=== PATIENT | male | born 1985 | race Caucasian/White ===

== ENCOUNTER 2021-01-19 15:46 | Emergency (ER) | payer OTHER ==
--- OUTSIDE RECORDS SUMMARY | 2021-01-19 15:50 | XMS REPORT | Continuity of Care Document ---
:1985 Author Organization [facility] t Address [address] [place] [address] Care Team Providers Name Role Phone Quezada DOJohn Primary Care Physician Jules VALLEJO Attending Clinician Ever Callahan DPM Attending Clinician Danny BISHOP Attending Clinician SINDY Admitting Clinician Unavailable Payers Payer Name Policy Type Policy Effective Date Expiration Date Sour ce Number [facility] [id number] 2018 Metho dist [facility] [id number]PresentMilitar y Problems Condition Condition Condition Status Onset Resolution Last Treating Co mments Source Name Details Category Date Date Treatment Clinician Date 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 abdominal 7-13 st pain, pain, 00:00: Hospita vomiting, vomiting, 00 l and and diarrhea diarrhea Essential Essential Disease Active 2015-05 [facility] hypertensi hypertensi 0-12 st on on 00:00: Hospita 00 l Mild Mild Disease Active 2015-05 [facility] intermitte intermitte 0-12 st nt asthma nt asthma 00:00: Hosp lona without without 00 l complicati complicati on on Onychomyco Onychomyco Disease Active M ethodi sis sis 12-05 st 00:00: Hospita 00 l Scrotal Scrotal Disease Active Methodi skin skin 12-05 lesion lesion 00:00: Hospita 00 l YEISON YEISON Disease Active Methodi (obstructi (obstructi 12-05 ve sleep ve sleep 00:00: Hospit a apnea) apnea) 00 l Chronic Chronic Disease Active [facility] back pain back pain 12-05 st 00:00: Hospita 00 l Chronic Chronic Disease Active [facility] neck and neck and 12-05 back pain back pain 00:00: Hosp lona 00 l IBS IBS Disease Active Methodi (irritable (irritable st bowel bowel Hospita syndrome) syndrome) l Arthritis Arthritis Disease Active Met hodi [facility] Hospita l Torn Torn Disease Active Methodi rotator rotator st cuff cuff Hospita l PTSD PTSD Disease Active Method[facility] (post-trau (post-trau st matic matic Hospita stress stress l disorder) disorder) Allergies, Adverse Reactions, Alerts Allergy Allergy Status Severity Reaction(s) Onset Inactive Treating Comm ents Source Name Type Date Date Clinician Sincere Siegel Active GI Nausea Method i phone ty to Intolerance 12-[address] adverse 00:00: vomitting Hospit a reaction 00 l s to drug No Known DA Active [facility] Allergie 3-25 [facility] Family History Family Member Diagnosis Comments Start Date Stop Date Source Natural mother Hyper[facility] Natural mother Cancer [facility] Natural father No Known Problems Met [facility] Maternal grandmother Hyperlipidemia [facility] Social History Social Habit Start Date Stop Date Quantity Comments Source History of Cigarette Smoker [facility] tobacco use Hospital Tobacco use and 2019-08-03 2019-08-03 Never used [facility] exposure 00:00:00 00:00:00 Hospital Alcohol intake 2019-08-03 2019-08-03 [facility] 00:00:00 00:00:00 Hospital Tobacco Comment 2019-07-15 2019-07-15 quit 3 years agp Met [facility] 00:00:00 00:00:00 Hospital Alcohol Comment 2019-07-15 2019-07-15 rarely [facility] 00:00:00 00:00:00 Hospital Sex Ass[birth year] At [birth year] [facility] 00:00:00 00:00:00 Hospital Smoking Status Start Date Stop Date Source Former smoker 2019-08-03 00:00:00 2019-08-03 00:00:00 [facility] Medications Ordered Filled Start Stop Current Ordering Indication Dosage Frequency Signature Comments Components Source Medication Medication Date Date Medication? Clinician (SIG) Name Name albuterol Yes 2.5mg Q6H Take 2.5 Met hodi (ACCUNEB) 3-[address] 2.5 mg /3 00:52: nebulizati Ho spita mL (0.083 45 on every 6 l %) (six) nebulizer hours as solution needed for wheezing. oxyCODone Yes 10mg Take 10 mg Me thodi (OxyCONTIN) 3-[address] 10 MG 12 hr 00:52: as needed. Hospita tablet 45 l HYDROcodone Yes 1{tbl} Take 1 Me thodi -acetaminop 2-[address] hen (NORCO) 00:00: mouth. Hosp lona 10-325 mg 00 l per tablet Lisinopril Lisinopril Yes Leeroy [address] [facility] Albuterol Albuterol Yes Leeroy not [facility] defined [facility] Breo Breo Yes Leeroy [address] [facility] Procedures Procedure Date / Time Performed Performing Clinician [facility] e MRI ANKLE WO CONTRAST 2020-04-28 00:02:07 Allie Callahan [facility] RIGHT X RAYS NO CHARGE MRI 2020-04-27 23:05:03 [facility] Planned Activity Planned Date Details Comments Source Future Scheduled Test COVID-19 VACCINE (1) [facility] [code = COVID-19 VACCINE (1)] Future Scheduled Test Hepatitis C screening [facility] (procedure) [code = 329858184] Future Scheduled Test INFLUENZA VACCINE [facility] [code = INFLUENZA VACCINE] Encounters Start End Encounter Admission Attending Care Care Encounter Source Date/Time Date/Time Type Type Clinicians Facility Department ID 2020-07-21 2020-07-21 [id number] 2020-06-29 2020-06-29 Out[facility] [id number] [facility] 2020-06-24 2020-06-24 Out[facility] [id number] [facility] 2020-06-17 2020-06-17 [facility] [id number] [facility] 2020-04-27 2020-04-[address]2.840.1 [id number] Methodi 16:49:33 23:59:00 Encounter Vasquez [id number] 3.430.2.7 Hospit a .3.257564 l .8 2020-04-27 2020-04-[address]1 [id number] Methodi 16:27:55 16:48:00 Encounter Allie Curtis [id number] 3.430.2.7 Hospit a .3.335569 l .8 2020-04-27 2020-04-27 Outpatient [facility] [id number] [place] 00:00:00 00:00:00 ALLIE [address] 2020-04-27 2020-04-27 Outpatient [facility] [id number] [address] [place] [address] 00:00:00 00:00:[address] VASQUEZ [address] 2020-04-27 2020-04-27 Travel 1.2.840.1 [id number] [id number] Methodi 00:00:00 00:00:[address] 3.430.2.7 0.2.7.3.698 Ho spita .3.026238 084.8 l .8 2020-04-27 2020-04-27 Transcribe Sindy, 1.2.840.1 [id number] Methodi 00:00:00 00:00:00 Bradley Curtis [address]258.1.[address] [facility] [address] 3.430.2.7 Hospit a .3.366942 l .8 2020-03-18 2020-03-18 Outpatient [facility] [id number] [facility] 2020-03-01 2020-03-01 Outpatient [facility] [id number] [facility] 2020-03-01 2020-03-01 Outpatient [facility] [id number] [facility] 2019-12-11 2019-12-11 [facility] [id number] 15:12:00 15:12:00 t Bradford agreement24 avtal24 s - Drive [facility] Medicine l Medicine Outpati ent Clinics 2019-11-30 2019-11-30 [facility] [id number] 16:25:00 16:25:00 t GO Outdoors s - [employer] [facility] Medicine l Medicine Outpati ent Clinics 2019-11-30 2019-11-30 [facility] [id number] 16:15:00 16:15:00 t GO Outdoors s - Drive [facility] Medicine l Medicine Outpati ent Clinics 2019-11-24 2019-11-24 [facility] [id number] 15:59:00 15:59:00 t GO Outdoors s - Drive [facility] Medicine l Medicine Outpati ent Clinics 2019-11-19 2019-11-19 [facility] [id number] 14:23:00 14:23:00 t GO Outdoors s - Drive [facility] l Medicine Outpati ent Clinics 2019-11-18 2019-11-18 [facility] [id number] 11:20:00 11:20:00 t [facility] [employer] [facility] Medicine l Medicine Outpati ent Clinics 2019-11-17 2019-11-17 [facility] [id number] 10:36:00 10:36:00 [facility] Medicine l Medicine Outpati ent Clinics 2019-07-31 2019-07-31 Outpatient [facility] [id number] [place] 00:00:00 00:00:00 ALLIE [address] 2019-07-28 2019-07-28 Emergency Delgado, TRAUMA 1.2.840.114 [id number] 19:05:30 20:14:00 [facility] 350.1.13.10 4.2.7.2.686 [id number] 2019-07-21 2019-07-21 Outpatient [facility] [id number] [id number] [place] 00:00:00 00:00:00 ALLIE [address] Results Test Description Test Time Test Comments Results Result Sourc e Comments XR Rays No EXAMINATION: X RAYS Meth odist Charge MRI 3 NO CHARGE MRI [facility] 13:30:23 CLINICAL HISTORY: M79.5 Residual foreign body in soft tissue COMPARISON: None. FINDINGS: Three-view examination of the orbits. No metallic foreign body identified IMPRESSION: No metallic foreign body over either orbit [id number] Interface, Radiology Results - 04/28/2020 7:33 AM CST EXAMINATION : X RAYS NO CHARGE MRICLINICAL HISTORY: M79.5 Residual foreign body in soft tissueCOMPARISON: None.FINDINGS:Three- view examination of the orbits.No metallic foreign body identifiedIMPRESSION :No metallic foreign body over either [id number] MRI Ankle Wo EXAMINATION: MRI Metho dist Contrast Right 3 ANKLE WO CONTRAST Hos pital 00:13:34 RIGHT CLINICAL HISTORY: S90.01XA Contusion of right ankle initial encounter, M25.571 Pain in right ankle and joints of right foot, S90.01XA M25.571 COMPARISON: None available. TECHNIQUE: Multiplanar multisequence MRI of the right ankle was performed without contrast. FINDINGS: MARROW/JOINT SPACES/JOINT FLUID: *Normal marrow signal without evidence of fracture, stress reaction or pathologic marrow replacing process. *1.3 x 1.4 cm medial talar dome osteochondral defect. No in situ fragment or loose intra-articular body*Small volume tibiotalar joint effusion. TENDONS:*Achilles tendon: Intact.*Anterior: Focal fluid surrounds the extensor digitorum longus tendon consistent with either focal tenosynovitis vs small ganglion formation. The anterior ankle tendons are otherwise intact.*Medial: intact.*Peroneal:int act.*Additional Findings: None LIGAMENTS: *Syndesmotic: Anterior and posterior syndesmotic ligaments are intact.*Lateral: Anterior talofibular ligament, calcaneofibular ligament and posterior talofibular ligament are intact.*Medial: Deep deltoid ligament intact.*Spring Ligament complex:Intact*Addit ional Findings: None SINUS TARSI: Intact.PLANTAR FASCIA: Intact.TARSAL TUNNEL: Normal.SOFT TISSUES: No fluid collections, hematomas or edema. IMPRESSION: 1.1.4 cm medial talar dome osteochondral defect.2.Small volume ankle joint effusion without loose body.3.Other chronic findings as above. [id number] Interface, Radiology Results Incoming - 04/27/2020 6:16 PM CST EXAMINATION : MRI ANKLE WO CONTRAST RIGHTCLINICAL HISTORY: S90.01XA Contusion of right ankle initial encounter, M25.571 Pain in right ankle and joints of right foot, S90.01XA M25.571COMPARISON: None available.TECHNIQUE: Multiplanar multisequence MRI of the right ankle was performed without contrast.FINDINGS:MA RROW/JOINT SPACES/JOINT FLUID: *Normal marrow signal without evidence of fracture, stress reaction or pathologic marrow replacing process. *1.3 x 1.4 cm medial talar dome osteochondral defect. No in situ fragment or loose intra-articular body*Small volume tibiotalar joint effusion.TENDONS:*Ac hilles tendon: Intact.*Anterior: Focal fluid surrounds the extensor digitorum longus tendon consistent with either focal tenosynovitis vs small ganglion formation. The anterior ankle tendons are otherwise intact.*Medial: intact.*Peroneal:int act.*Additional Findings: NoneLIGAMENTS: *Syndesmotic: Anterior and posterior syndesmotic ligaments are intact.*Lateral: Anterior talofibular ligament, calcaneofibular ligament and posterior talofibular ligament are intact.*Medial: Deep deltoid ligament intact.*Spring Ligament complex:Intact*Addit ional Findings: NoneSINUS TARSI: Intact.PLANTAR FASCIA: Intact.TARSAL TUNNEL: Normal.SOFT TISSUES: No fluid collections, hematomas or edema.IMPRESSION:1.1 .4 cm medial talar dome osteochondral defect.2.Small volume ankle joint effusion without loose body.3.Other chronic findings as above.[id number] - XR FOOT 3 + V 2019-05-28 FAX: RT 0 Viktoriya Mina 18:39:00 [place]: St: REG -- Name: VITALIY COLBERT [facility] : 1985 Age/S: 33/M [address] [facility]: [id number] Loc: [place], [place] Phys: Viktoriya Mina FORK OPERATOR [id number] Acct: [id number] Dis Date: Status: REG ER PHONE #: [phone] Exam Date: 06/15/2019 1824 FAX #: [phone] Reason: pain to limb EXAMS: CPT CODE: [id number] XR FOOT 3 + V RT [id number] Location code: R 16 Right ankle 3 views and right foot 3 views: Indication: pain to limb Comparison: none. Findings: Small bony fragment lateral to the tip of the medial malleolus appears to originate from the lateral malleolus, consistent with a deltoid ligament avulsion fracture. The fragment is smoothly marginated and somewhat deossified, suggesting chronicity. Mild soft tissue swelling over lateral malleolus. Ankle joint is otherwise intact. Subtalar and foot joints unremarkable. Bones of the foot are intact. IMPRESSION: Small avulsion fracture originating from the medial malleolus, consistent with a deltoid ligament avulsion fracture, probably chronic. Mild overlying soft tissue swelling, consistent with superimposed acute sprain. at 1839 Reported and signed by: Richard Nova M.D. CC: Viktoriya Mina NP Technologist: ALEKSEY Ribeirord Date/Time/By: 06/15/2019 (1838) : By: [email or web address] PAGE 1 Signed Report FAX: Viktoriya Mina [phone] [place]: St: REG -- Name: VITALIY COLBERT [facility] : 1985 Age/S: 33/M [facility] [place] Unit #: [id number] Loc: [place], [place] Phys: Viktoriya Mina FORK OPERATOR [id number] Acct: [id number] Dis Date: Status: REG ER PHONE #: [phone] Exam Date: 06/15/20191823 FAX #: [phone] Reason: pain to limb EXAMS: CPT CODE: [id number] XR FOOT 3 + V RT [id number] <Continued> Orig Print D/T: S: 06/15/2019 (1841) PAGE 2 Signed Report - XR ANKLE 3 + V 2019-05-28 FAX: RT 0 Viktoriya Mina 18:39:00 [place]: St: REG -- Name: DOUGLESLYVITALIY MARTIN [facility] : 1985 Age/S: 33/M [address] [place] Unit #: [id number] Loc: [place], [place] Phys: Viktoriya Mina FORK OPERATOR [id number] Acct: [id number] Dis Date: Status: REG ER PHONE #: [phone] Exam Date: 06/15/2019 1824 FAX #: [phone] Reason: pain to limb EXAMS: CPT CODE: [id number] XR ANKLE 3 + V RT [id number] Location code: R 16 Right ankle 3 views and right foot 3 views: Indication: pain to limb Comparison: none. Findings: Small bony fragment lateral to the tip of the medial malleolus appears to originate from the lateral malleolus, consistent with a deltoid ligament avulsion fracture. The fragment is smoothly marginated and somewhat deossified, suggesting chronicity. Mild soft tissue swelling over lateral malleolus. Ankle joint is otherwise intact. Subtalar and foot joints unremarkable. Bones of the foot are intact. IMPRESSION: Small avulsion fracture originating from the medial malleolus, consistent with a deltoid ligament avulsion fracture, probably chronic. Mild overlying soft tissue swelling, consistent with superimposed acute sprain. at 1839 Reported and signed by: Richard Nova M.D. CC: Viktoriya Mina NP Technologist: ALEKSEY DOHERTY Trnnvrd Date/Time/By: 06/15/2019 (1838) : By: [email or web address] PAGE 1 Signed Report FAX: Viktoriya Mina [phone] [place]: St: REG -- Name: VITALIY COLBERT [facility] : 1985 Age/S: 33/M [address] [employer] Unit #: [id number] Loc: [place], [place] Phys: Viktoriya Mina FORK OPERATOR [id number] Acct: [id number] Dis Date: Status: REG ER PHONE #: [phone] Exam Date: 06/15/2019 1824 FAX #: [phone] Reason: pain to limb EXAMS: CPT CODE: [id number] XR ANKLE 3 + V RT [id number] <Continued> Orig Print D/T: S: 06/15/2019 (6685) PAGE 2 Signed Report
--- NOTE | 2021-01-19 16:28 | RAD REPORT ---
EXAM DESCRIPTION: CT - Ct Stroke Brain Wo Cont - 01/19/2021 4:20 pm CLINICAL HISTORY: Headache;Numbness COMPARISON: No comparisons TECHNIQUE: All CT scans are performed using dose optimization technique as appropriate and may inclu de automated exposure control or mA/KV adjustment according to patient size. FINDINGS: No intracranial hemorrhage, hydrocephalus or extra-axial fluid collection.No areas of brai n edema or evidence of midline shift. The paranasal sinuses and mastoids are clear. The calvarium is intact. IMPRESSION: No acute intracranial abnormality.
--- NOTE | 2021-01-19 16:46 | EDPHYS ---
Physician Documentation [facility] Name: Mahad Blunt Age: 35 yrs Sex: Male : 1985 Arrival Date: 01/19/2021 Time: 15:48 Bed 6 Private MD: ED Physician Sean Lui HPI: 01/19 16:35 This 35 yrs old Male presents to ER via Ambulatory with complaints of High lydia Blood Pressure, Numbness in Hand. Historical: - Allergies: 16:10 No Known Allergies; sv - Home Meds: 16:10 Lisinopril Oral [Active]; sv - PMHx: 16:10 HTN; sv - Immunization history:: Client reports receiving the 2nd dose of the Covid vaccine, Client reports receiving the 1st dose of the Covid vaccine. - Social history:: Smoking status: Patient reports the use of cigarette tobacco products, denies chronic smoking, but will smoke occasionally. ROS: 16:36 Constitutional: Negative for fever, chills, and weight loss, Eyes: Negative for injury, lydia pain, redness, and discharge, ENT: Negative for injury, pain, and discharge, Neck: Negative for injury, pain, and swelling, Cardiovascular: Negative for chest pain, palpitations, and edema, Respiratory: Negative for shortness of breath, cough, wheezing, and pleuritic chest pain, Abdomen/GI: Negative for abdominal pain, nausea, vomiting, diarrhea, and constipation, Back: Negative for injury and pain, : Negative for injury, bleeding, discharge, and swelling, MS/Extremity: Negative for injury and deformity, Skin: Negative for injury, rash, and discoloration, Psych: Negative for depression, anxiety, suicide ideation, homicidal ideation, and hallucinations, Allergy/Immunology: Negative for hives, rash, and allergies, Endocrine: Negative for neck swelling, polydipsia, polyuria, polyphagia, and marked weight changes, Hematologic/Lymphatic: Negative for swollen nodes, abnormal bleeding, and unusual bruising. 16:36 Neuro: Positive for weakness, of the right arm. Exam: 16:36 Constitutional: This is a well developed, well nourished patient who is awake, alert, lydia and in no acute distress. Head/Face: Normocephalic, atraumatic. Eyes: Pupils equal round and reactive to light, extra-ocular motions intact. Lids and lashes normal. Conjunctiva and sclera are non-icteric and not injected. Cornea within normal limits. Periorbital areas with no swelling, redness, or edema. ENT: Nares patent. No nasal discharge, no septal abnormalities noted. Tympanic membranes are normal and external auditory canals are clear. Oropharynx with no redness, swelling, or masses, exudates, or evidence of obstruction, uvula midline. Mucous membranes moist. Neck: Trachea midline, no thyromegaly or masses palpated, and no cervical lymphadenopathy. Supple, full range of motion without nuchal rigidity, or vertebral point tenderness. No Meningismus. Chest/axilla: Normal chest wall appearance and motion. Nontender with no deformity. No lesions are appreciated. Cardiovascular: Regular rate and rhythm with a normal S1 and S2. No gallops, murmurs, or rubs. Normal PMI, no JVD. No pulse deficits. Respiratory: Lungs have equal breath sounds bilaterally, clear to auscultation and percussion. No rales, rhonchi or wheezes noted. No increased work of breathing, no retractions or nasal flaring. Abdomen/GI: Soft, non-tender, with normal bowel sounds. No distension or tympany. No guarding or rebound. No evidence of tenderness throughout. Back: No spinal tenderness. No costovertebral tenderness. Full range of motion. Male : Normal genitalia with no discharge or lesions. Skin: Warm, dry with normal turgor. Normal color with no rashes, no lesions, and no evidence of cellulitis. MS/ Extremity: Pulses equal, no cyanosis. Neurovascular intact. Full, normal range of motion. Psych: Awake, alert, with orientation to person, place and time. Behavior, mood, and affect are within normal limits. 16:36 Neuro: Orientation: is normal, appropriate for stated age, no acute changes, Mentation: is normal, appropriate for stated age, no acute changes, Memory: is normal, appropriate for stated age, no acute changes, Cranial nerves: grossly normal, is grossly normal based on the patient's age, no acute changes, Cerebellar function: is grossly normal, is grossly normal based on the patient's age, no acute changes, Motor: is normal, is grossly normal based on the patient's age, no acute changes, moves all fours, strength is 5/5 in all extremities, Sensation: numbness, that is mild, of the right arm, Gait: not tested. Deep tendon reflexes are 2+ (normal) in the bilateral brachioradialis, bicep, tricep and patellar and Achilles tendons, Babinski testing is normal, seizure activity, is not displayed by the patient. 16:46 ECG was reviewed by the Attending Physician. lydia Vital Signs: 16:11 BP 153 / 104; Pulse 90; Resp 20; Temp 97.3; Pulse Ox 99% ; Weight 127.01 kg; Height 6 sv ft. 0 in. (182.88 cm); 17:40 BP 149 / 97; Pulse 75; Resp 18; Pulse Ox 100% on R/A; tr6 18:25 BP 136 / 71; Pulse 76; Resp 18; Pulse Ox 100% on R/A; tr6 16:11 Body Mass Index 37.98 (127.01 kg, 182.88 cm) sv NIH Stroke Scale Scores: 16:39 NIHSS Score: 2 lydia 17:33 NIHSS Score: 0 tr6 Sue Coma Score: 16:39 Eye Response: spontaneous(4). Verbal Response: oriented(5). Motor Response: obeys lydia commands(6). Total: 15. MDM: 16:25 Patient medically screened. lydia 16:41 Differential diagnosis: hypertensive crisis, Malignant HTN, CVA. Data reviewed: vital lydia signs, nurses notes. Data interpreted: monitoring and evaluation advisor: rate is 90 beats/min, rhythm is regular, Pulse oximetry: on room air is 99 %. Test interpretation: by ED physician or midlevel provider: ECG, plain radiologic studies. Counseling: I had a detailed discussion with the patient and/or guardian regarding: the historical points, exam findings, and any diagnostic results supporting the discharge/admit diagnosis, lab results. 16:45 Physician consultation: Gt Ely MD wants tpa, transfer , no beds. ED course: lydia ely, tpa yes, no reason not too. 01/19 16:25 Order name: Basic Metabolic Panel 01/19 16:25 Order name: CBC with Diff; Complete Time: 17:21 01/19 16:25 Order name: Protime (+inr); Complete Time: 17:21 01/19 16:25 Order name: Ptt, Activated; Complete Time: 17:21 01/19 16:25 Order name: Basic Metabolic Panel; Complete Time: 17:21 EDMD 01/19 16:15 Order name: CT Stroke Brain w/o Contrast; Complete Time: 16:35 sv 01/19 16:25 Order name: Stroke CXR 1 View; Complete Time: 17:08 01/19 16:28 Order name: CT Head Angio; Complete Time: 17:08 [facility] 01/19 16:28 Order name: Neck Angio CT; Complete Time: 17:08 [facility] 01/19 16:44 Order name: Glucose, Ancillary Testing; Complete Time: 17:08 EDMD 01/19 17:04 Order name: Brain Wo Cont; Complete Time: 17:49 EDMD 01/19 18:16 Order name: SARS-COV-2 RT PCR EDMD 01/19 16:25 Order name: EKG; Complete Time: 16:25 sv 01/19 16:25 Order name: Accucheck; Complete Time: 16:34 sv 01/19 16:25 Order name: Cardiac monitoring; Complete Time: 16:42 01/19 16:25 Order name: EKG - Nurse/Tech; Complete Time: 16:42 01/19 16:25 Order name: IV Saline Lock; Complete Time: 16:34 sv 01/19 16:25 Order name: Labs collected and sent; Complete Time: 16:34 01/19 16:25 Order name: NPO; Complete Time: 16:34 01/19 16:25 Order name: O2 Per Protocol; Complete Time: 16:34 01/19 16:25 Order name: O2 Sat Monitoring; Complete Time: 16:34 01/19 16:25 Order name: Stroke Swallow Screen sv EC:46 Rate is 84 beats/min. Rhythm is regular. QRS Long Key is Normal. WI interval is normal. QRS lydia interval is normal. QT interval is normal. No Q waves. T waves are Normal. No ST changes noted. Clinical impression: NSR w/ Non-specific ST/T Changes and No evidence of ischemia. Interpreted by me. Reviewed by me. Administered Medications: 16:41 Drug: NS 0.9% 1000 ml Route: IV; Rate: 1 bolus; Site: right antecubital; tr6 18:49 Follow up: IV Status: Completed infusion; IV Intake: 1000ml bp 16:41 Drug: foLIC Acid 1 mg Route: IVPB; Site: right antecubital; tr6 18:50 Follow up: IV Status: Completed infusion; IV Intake: 100ml bp 17:40 Drug: ACTIvase (alteplase) {Co-Signature: bp (Vazquez Huizar RN).} Route: IV tr6 Thrombolytics; Rate: calculated rate; Infused Over: 60 mins; 18:48 Follow up: Response: No adverse reaction bp 18:23 Drug: Lipitor (atorvastatin) 20 mg Route: PO; tr6 18:48 Follow up: Response: No adverse reaction bp Disposition Summary: 01/19/21 16:45 Transfer Ordered Transfer Location: [facility] lydia Reason: Higher level of care lydia Condition: Stable lydia Problem: new lydia Symptoms: have improved lydia Accepting Physician: to stroke unit(01/19/21 19:01) tr6 Diagnosis - Cerebral infarction, unspecified - right arm numbness lydia Forms: - Medication Reconciliation Form lydia - SBAR form lydia NIH Stroke Scale - NIH Stroke Score Date: 01/19/2021 Time: 16:39 Total Score = 2 1a. Level of Consciousness (LOC) - 0(Alert) 1b. Level of Consciousness (LOC) (Month \T\ Age) - 0(Both) 1c. LOC Commands (Open \T\ Closes Eyes/Bioinformatician) - 0(Both) 2. Best Gaze (Lateral Gaze Paresis) - 0(Normal) 3. Visual Field Loss - 0(No visual loss) 4. Facial Palsy - 0(Normal) 5a. Left Arm: Motor (10-second hold) - 0(No drift) 5b. Right Arm: Motor (10-second hold) - 1(Drift) 6a. Left Leg: Motor (5-second hold - always test supine) - 0(No drift) 6b. Right Leg: Motor (5-second hold - always test supine) - 0(No drift) 7. Limb Ataxia (finger/nose \T\ heel/norris - test with eyes open) - 0(Absent) 8. Sensory Loss (pinprick arms/legs/face) - 1(Mild to moderate loss) 9. Best Language: Aphasia (description/naming/reading) - 0(No aphasia) 10. Dysarthria (speech clarity - read or repeat words) - 0(Normal) 11. Extinction and Inattention (visual/tactile/auditory/spatial/personal) - 0(No abnormality) Initials: lydia NIH Stroke Scale - NIH Stroke Score Date: 01/19/2021 Time: 17:33 Total Score = 0 1a. Level of Consciousness (LOC) - 0(Alert) 1b. Level of Consciousness (LOC) (Month \T\ Age) - 0(Both) 1c. LOC Commands (Open \T\ Closes Eyes/Bioinformatician) - 0(Both) 2. Best Gaze (Lateral Gaze Paresis) - 0(Normal) 3. Visual Field Loss - 0(No visual loss) 4. Facial Palsy - 0(Normal) 5a. Left Arm: Motor (10-second hold) - 0(No drift) 5b. Right Arm: Motor (10-second hold) - 0(No drift) 6a. Left Leg: Motor (5-second hold - always test supine) - 0(No drift) 6b. Right Leg: Motor (5-second hold - always test supine) - 0(No drift) 7. Limb Ataxia (finger/nose \T\ heel/norris - test with eyes open) - 0(Absent) 8. Sensory Loss (pinprick arms/legs/face) - 0(Normal) 9. Best Language: Aphasia (description/naming/reading) - 0(No aphasia) 10. Dysarthria (speech clarity - read or repeat words) - 0(Normal) 11. Extinction and Inattention (visual/tactile/auditory/spatial/personal) - 0(No abnormality) Initials: tr6 Signatures: Dispatcher [employer] EDGuera Oseguera RN RN sv Anderson, Corey, MD MD cha Ramnanan, Tiffany, RN RN tr6 Peltier, Brian RN bp Brian Peltier RN bp Corrections: (The following items were deleted from the chart) 17:03 16:43 CORONAVIRUS+MR.LAB.BRZ ordered. EDMS EDMS 17:04 16:28 MR STROKE PROTOCOL+MRI.RAD.BRZ ordered. EDMS EDMS 19:01 16:45 to stroke unit [facility] deangelo
--- NOTE | 2021-01-19 16:46 | ER ---
Nurse's Notes [facility] Name: Mahad Blunt Age: 35 yrs Sex: Male : 1985 Arrival Date: 01/19/2021 Time: 15:48 Bed 6 Private MD: Diagnosis: Cerebral infarction, unspecified-right arm numbness Presentation: 01/19 16:09 Coronavirus screen: Client denies travel out of the [place] in the last 14 days. At this sv time, the client does not indicate any symptoms associated with coronavirus-19. Ebola Screen: No symptoms or risks identified at this time. Risk Assessment: Do you want to hurt yourself or someone else? Patient reports no desire to harm self or others. Onset of symptoms was January 19, 2021. 16:09 Method Of Arrival: Ambulatory sv 16:09 Acuity: MIGUELANGEL 2 sv 16:09 Chief complaint: Patient states: HTN 183/125, c/o headache, R arm numbness, L upper lip sv numbness started 45 mins ago. Pt has L arm drift with effort noted. 16:11 Initial Sepsis Screen: Does the patient meet any 2 criteria? No. Patient's initial sv sepsis screen is negative. Does the patient have a suspected source of infection? No. Patient's initial sepsis screen is negative. 18:06 No acute neurological deficit is noted. tr6 Triage Assessment: 16:09 General: Appears in no apparent distress. comfortable, well developed, Behavior is sv calm, cooperative, appropriate for age. Pain: Denies pain. Neuro: Level of Consciousness is awake, alert, obeys commands, Oriented to person, place, time, situation, Senior Computer Specialist are equal bilaterally Moves all extremities. Full function Gait is steady, Speech is normal, Facial symmetry appears normal, Facial symmetry: tongue is midline, Reports numbness in right arm and left upper lip. Neuro: Reports headache in entire Denies weakness blurred vision diplopia. Respiratory: Respiratory effort is even, unlabored. 16:09 The onset of the patients symptoms was The onset of the patients symptoms was December at 15:00. Stroke Activation: Symptom onset < 3 hours Physician: Stroke Attending; Name: ; Notified At: ; Arrived At: Physician: Chief Stroke Resident; Name: ; Notified At: ; Arrived At: Physician: Stroke Resident; Name: ; Notified At: ; Arrived At: Physician: ED Attending; Name: ; Notified At: ; Arrived At: Physician: ED Resident; Name: ; Notified At: ; Arrived At: Historical: - Allergies: 16:10 No Known Allergies; sv - Home Meds: 16:10 Lisinopril Oral [Active]; sv - PMHx: 16:10 HTN; sv - Immunization history:: Client reports receiving the 2nd dose of the Covid vaccine, Client reports receiving the 1st dose of the Covid vaccine. - Social history:: Smoking status: Patient reports the use of cigarette tobacco products, denies chronic smoking, but will smoke occasionally. Screenin:04 Abuse screen: Denies threats or abuse. Denies injuries from another. Nutritional tr6 screening: No deficits noted. Tuberculosis screening: No symptoms or risk factors identified. Fall Risk None identified. Assessment: 16:09 VAN Scoring: Arm Drift: Minor drift sv 17:33 Patient has been NPO before screening. The patient is alert, and able to follow tr6 commands. The patient does not exhibit slurred or garbled speech. The patient is not exhibiting difficulty speaking. The patient does not exhibit difficulty understanding words. The patient is able to swallow own secretions with no drooling or need for suction. Patient tolerated one teaspoon of water. No drooling, immediate coughing, gurgling, or clearing of the throat was noted. The patient tolerated 90mL of water. No drooling, immediate coughing, gurgling, or clearing of the throat was noted. The patient passed the bedside swallow screening. Oral medications may be given as ordered. Contact Physician for further diet orders. Provider notified of bedside swallow screening results: Sean Lui MD. T-PA (Activase) Screening: Indications: Definite evidence of stroke, ischemic, embolic, or hypertensive: Yes. No evidence of intracranial hemorrhage or CT of head and no evidence of peripheral hemorrhage or recent CVA: Yes. Contraindications:. General: Appears in no apparent distress. comfortable, Behavior is calm, cooperative, appropriate for age. Pain: Denies pain. Neuro: No deficits noted. Level of Consciousness is awake, alert, obeys commands, Oriented to person, place, time, situation, Appropriate for age Senior Computer Specialist are equal bilaterally Moves all extremities. Speech is normal, Facial symmetry appears normal. Cardiovascular: No deficits noted. Rhythm is sinus rhythm. Respiratory: No deficits noted. GI: No deficits noted. : No deficits noted. EENT: No deficits noted. Derm: No deficits noted. Musculoskeletal: No deficits noted. 18:05 Reassessment: REPORT TO [facility] STROKE UNIT. TRANSPORT PENDING. bp 18:30 Reassessment: [facility] AT [facility]/S. PT PAUL. bp Vital Signs: 16:11 BP 153 / 104; Pulse 90; Resp 20; Temp 97.3; Pulse Ox 99% ; Weight 127.01 kg; Height 6 sv ft. 0 in. (182.88 cm); 17:40 BP 149 / 97; Pulse 75; Resp 18; Pulse Ox 100% on R/A; tr6 18:25 BP 136 / 71; Pulse 76; Resp 18; Pulse Ox 100% on R/A; tr6 16:11 Body Mass Index 37.98 (127.01 kg, 182.88 cm) sv Sue Coma Score: 16:39 Eye Response: spontaneous(4). Verbal Response: oriented(5). Motor Response: obeys lydia commands(6). Total: 15. NIH Stroke Scale Scores: 16:39 NIHSS Score: 2 lydia 17:33 NIHSS Score: 0 tr6 ED Course: 15:48 Patient arrived in ED. ds1 16:09 Arm band placed on. sv 16:10 Triage completed. sv 16:[address] via wheelchair. tr6 16:19 Vazquez Huizar, RN is Primary Nurse. bp 16:20 CT Stroke Brain w/o Contrast In Process Unspecified. EDMS 16:25 Sean Lui MD is Attending Physician. lydia 16:39 Transfer initiated with [facility]. em1 16:45 Stroke CXR 1 View In Process Unspecified. EDMS 16:46 Transfer decliined due to capacity at [facility]. em1 16:54 CT Head Angio In Process Unspecified. EDMS 16:[address] In Process Unspecified. EDMS 17:16 Brain Wo Cont In Process Unspecified. EDMS 18:04 No apparent distress. Resting quietly. transfer. tr6 18:04 Patient has correct armband on for positive identification. Bed in low position. Call tr6 light in reach. Side rails up X2. property assessment monitor on. Pulse ox on. NIBP on. Door closed. Noise minimized. Visitors limited. Lights dimmed. Moved to private room. Warm blanket given. Diet: Patient is NPO. Consent for blood and/or blood product transfusion explained by staff, signed by patient, DIEGO. 18:04 No provider procedures requiring assistance completed. Inserted saline lock: 20 gauge tr6 in right antecubital area, using aseptic technique. Blood collected. Patient maintains SpO2 saturation greater than 95% on room air. 18:47 Patient transferred, IV remains in place. bp Administered Medications: 16:41 Drug: NS 0.9% 1000 ml Route: IV; Rate: 1 bolus; Site: right antecubital; tr6 18:49 Follow up: IV Status: Completed infusion; IV Intake: 1000ml bp 16:41 Drug: foLIC Acid 1 mg Route: IVPB; Site: right antecubital; tr6 18:50 Follow up: IV Status: Completed infusion; IV Intake: 100ml bp 17:40 Drug: ACTIvase (alteplase) {Co-Signature: bp (Vazquez Huizar RN).} Route: IV tr6 Thrombolytics; Rate: calculated rate; Infused Over: 60 mins; 18:48 Follow up: Response: No adverse reaction bp 18:23 Drug: Lipitor (atorvastatin) 20 mg Route: PO; tr6 18:48 Follow up: Response: No adverse reaction bp Intake: 18:49 IV: 1000ml; Total: 1000ml. bp 18:50 IV: 100ml; Total: 1100ml. bp Outcome: 16:45 ER care complete, transfer ordered by . lydia 18:45 Transferred by ground EMS to [facility]. bp 18:45 Condition: stable 18:45 Instructed on the need for transfer. 19:01 Patient left the ED. tr6 NIH Stroke Scale - NIH Stroke Score Date: 01/19/2021 Time: 16:39 Total Score = 2 1a. Level of Consciousness (LOC) - 0(Alert) 1b. Level of Consciousness (LOC) (Month \\T\\ Age) - 0(Both) 1c. LOC Commands (Open \\T\\ Closes Eyes/Partner Management Consultant) - 0(Both) 2. Best Gaze (Lateral Gaze Paresis) - 0(Normal) 3. Visual Field Loss - 0(No visual loss) 4. Facial Palsy - 0(Normal) 5a. Left Arm: Motor (10-second hold) - 0(No drift) 5b. Right Arm: Motor (10-second hold) - 1(Drift) 6a. Left Leg: Motor (5-second hold - always test supine) - 0(No drift) 6b. Right Leg: Motor (5-second hold - always test supine) - 0(No drift) 7. Limb Ataxia (finger/nose \\T\\ heel/norris - test with eyes open) - 0(Absent) 8. Sensory Loss (pinprick arms/legs/face) - 1(Mild to moderate loss) 9. Best Language: Aphasia (description/naming/reading) - 0(No aphasia) 10. Dysarthria (speech clarity - read or repeat words) - 0(Normal) 11. Extinction and Inattention (visual/tactile/auditory/spatial/personal) - 0(No abnormality) Initials: [facility] NIH Stroke Scale - NIH Stroke Score Date: 01/19/2021 Time: 17:33 Total Score = 0 1a. Level of Consciousness (LOC) - 0(Alert) 1b. Level of Consciousness (LOC) (Month \\T\\ Age) - 0(Both) 1c. LOC Commands (Open \\T\\ Closes Eyes/Partner Management Consultant) - 0(Both) 2. Best Gaze (Lateral Gaze Paresis) - 0(Normal) 3. Visual Field Loss - 0(No visual loss) 4. Facial Palsy - 0(Normal) 5a. Left Arm: Motor (10-second hold) - 0(No drift) 5b. Right Arm: Motor (10-second hold) - 0(No drift) 6a. Left Leg: Motor (5-second hold - always test supine) - 0(No drift) 6b. Right Leg: Motor (5-second hold - always test supine) - 0(No drift) 7. Limb Ataxia (finger/nose \\T\\ heel/norris - test with eyes open) - 0(Absent) 8. Sensory Loss (pinprick arms/legs/face) - 0(Normal) 9. Best Language: Aphasia (description/naming/reading) - 0(No aphasia) 10. Dysarthria (speech clarity - read or repeat words) - 0(Normal) 11. Extinction and Inattention (visual/tactile/auditory/spatial/personal) - 0(No abnormality) Initials: tr6 Signatures: Dispatcher [employer] Guera White RN RN sv Sean Lui MD MD cha Sanford, Shana ds1 Dennis, Livan em1 Vazquez Huizar RN RN bp Carrol Willett RN RN tr6 Vazquez Huizar RN bp Corrections: (The following items were deleted from the chart) 16:14 16:09 Chief complaint: Patient states: HTN 183/125, c/o headache, R arm sv numbness started about 45 mins ago. sv 16:14 16:09 Acuity: MIGUELANGEL 3 sv sv 16:14 16:11 Pulse 90bpm; Resp 20bpm; Pulse Ox 99%; Temp 97.3F; 127.01 kg; Height 6 sv ft. 0 in.; BMI: 37.9; sv 16:26 16:09 Chief complaint: Patient states: HTN 183/125, c/o headache, R arm sv numbness, left upper lip numbness started about 45 mins ago. "I just feel weird." sv
--- NOTE | 2021-01-19 16:58 | RAD REPORT ---
EXAM DESCRIPTION: RAD - Chest Single View - 01/19/2021 4:45 pm CLINICAL HISTORY: code stroke COMPARISON: No comparisons FINDINGS: No evidence of edema or pneumonia. The heart size is within normal limits.No acute osseous abnormality. No significant pleural effusions or pneumothorax. IMPRESSION: No acute cardiopulmonary disease.
[2021-01-19] MEDS ORDERED: FOLIC ACID 5 MG/ML VIAL ONE (17:02)
--- NOTE | 2021-01-19 17:02 | RAD REPORT ---
EXAM DESCRIPTION: CT - Head angio - 01/19/2021 4:54 pm CLINICAL HISTORY: Dizziness;Weakness COMPARISON: Ct Stroke Brain Wo Cont dated 01/19/2021 TECHNIQUE: CT angiography of the head was performed with MIPs. All CT scans are performed using dose optimization technique as appropriate and may include automated exposure control or mA/KV adjustment according to patient size. FINDINGS: No evidence of aneurysm is detected. No flow-limiting stenosis or vascular malformation id entified. Antegrade flow is seen in the vertebral arteries. The vertebral arteries are codominant. The visualized dural venous sinuses are patent. IMPRESSION: No significant flow abnormality is detected.
[2021-01-19] MEDS ORDERED: NA CHLORIDE 0.9% 1,000 ML ONE (17:03)
[2021-01-19] MEDS ORDERED: ALTEPLASE 100 ML IV ONE (17:03)
--- NOTE | 2021-01-19 17:04 | RAD REPORT ---
EXAM DESCRIPTION: CT - Neck Angio - 01/19/2021 4:54 pm CLINICAL HISTORY: Numbness;Headache COMPARISON: No comparisons TECHNIQUE: CT angiography of the neck vessels was performed with MIPs. All CT scans are performed using dose optimization technique as appropriate and may include automated exposure control or mA/KV adjustment according to patient size. FINDINGS: A left aortic arch is identified with normal three vessel configuration of the great vesse ls. No significant flow abnormality is seen of the common carotid bilaterally. No significant stenosis is identified involving the cervical segments of both internal carotid arteri es. Normal flow is seen within both vertebral arteries. IMPRESSION: No significant flow abnormality of the neck vessels is identified.
[2021-01-19 17:05] LABS: Absolute Lymphocytes (CBC) 2.9 K/uL (0.7-4.9); Basophils % 0.9 % (0-1.3); Hematocrit 45.6 % (39.6-49.0); Lymphocytes % 33.9 % (15.3-44.8); RBC Red Blood Cell Count 5.11 M/uL (4.33-5.43)
[2021-01-19 17:08] LABS: Protime INR 0.97
[2021-01-19 17:11] LABS: Potassium 3.9 mmol/L (3.5-5.1)
--- NOTE | 2021-01-19 17:28 | RAD REPORT ---
EXAM DESCRIPTION: MRI - Brain Wo Cont - 01/19/2021 5:16 pm CLINICAL HISTORY: Dizziness weakness COMPARISON: None. TECHNIQUE: Sagittal T1-weighted images were obtained along with PD/heavily T2-weighted and T2-FLAIR images. Axial DWI and ADC mapping sequences were also obtained along with coronal heavily T2-weighted images were obtained. FINDINGS: No intracranial hemorrhage, mass or acute infarction. There is no edema or shift of midlin e structures. No extra-axial fluid collections. Long-matter/white matter junction is preserved. Signa l voids are seen as a normal finding in the major intracranial vessels. Mastoid air cells and paranasal sinuses are clear. IMPRESSION: No acute intracranial abnormality. Specifically, no evidence of acute infarct.
[2021-01-19] MEDS ORDERED: ATORVASTATIN 20 MG TAB ONE (18:44)
[2021-01-19 19:07] VITALS: TEMP 97.3
[2021-01-19 19:08] VITALS: O2SAT 100
[2021-01-19 19:10] VITALS: BP 136/71
== END 2021-01-19 19:01 | disposition short-term general hospital (02) ==
LOC: ER 15:46
DX: I63.9 Cerebral infarction, unspecified (principal); I10 Essential (primary) hypertension; R29.702 NIHSS score 2; Z20.822 Contact with and (suspected) exposure to COVID-19
CPT/HCPCS: 96365; 92977; 93005; 85025; 80048; 36415; 85610; 82565; 82947; 85730; 70496; 70498; 70450; 71045; 70551; 99285; 96366; U0003; Q9967; J2997; J7030